=== PATIENT | male | born 1975 | race Caucasian/White ===

== ENCOUNTER 2020-04-13 13:39 | Outpatient (REF) | payer OTHER, SELFPAY | END 2020-04-13 13:40 | disposition home or self-care (01) | LOC: HO.LAB 13:39 | PROVIDERS: Visit Provider Internal Medicine | DX: Z20.828 Contact with and (suspected) exposure to other viral communicable diseases (principal) | CPT/HCPCS: C9803; U0003 ==

== ENCOUNTER 2020-07-12 16:02 | Outpatient (REF) | payer OTHER, SELFPAY | END 2020-07-12 16:03 | disposition home or self-care (01) | LOC: HO.LAB 16:02 | PROVIDERS: Visit Provider Internal Medicine | DX: Z20.822 Contact with and (suspected) exposure to COVID-19 (principal) | CPT/HCPCS: 36415; C9803; U0003; U0005 ==

== ENCOUNTER 2020-07-20 12:43 | Outpatient (REF) | payer OTHER, SELFPAY ==
[2020-07-21 10:12] LABS: SARS COV2 PCR INHOUSE NEGATIVE (Negative)
== END 2020-07-20 12:44 | disposition home or self-care (01) ==
LOC: HO.LAB 12:43
PROVIDERS: Visit Provider Internal Medicine
DX: Z20.822 Contact with and (suspected) exposure to COVID-19 (principal)
CPT/HCPCS: C9803; U0003

== ENCOUNTER 2020-07-24 07:31 | Outpatient (REF) | payer OTHER, SELFPAY ==
[2020-07-24 08:58] LABS: SARS COV2 PCR INHOUSE NEGATIVE (Negative)
== END 2020-07-24 07:32 | disposition home or self-care (01) ==
LOC: HO.LAB 07:31
PROVIDERS: Visit Provider Internal Medicine
DX: Z20.822 Contact with and (suspected) exposure to COVID-19 (principal)
CPT/HCPCS: C9803; U0003

== ENCOUNTER 2020-09-01 11:13 | Outpatient (REF) | payer MEDICAID, SELFPAY | END 2020-09-01 11:14 | disposition home or self-care (01) | LOC: HO.LAB 11:13 | PROVIDERS: Visit Provider Internal Medicine | DX: Z20.822 Contact with and (suspected) exposure to COVID-19 (principal) | CPT/HCPCS: C9803; U0003; U0005 ==

== ENCOUNTER 2021-04-18 08:49 | Outpatient (REF) | payer OTHER, SELFPAY | END 2021-04-18 08:50 | disposition home or self-care (01) | LOC: HO.HMGCLDS 08:49 | PROVIDERS: Visit Provider Internal Medicine | DX: Z20.822 Contact with and (suspected) exposure to COVID-19 (principal) | CPT/HCPCS: C9803; U0003; U0005 ==

== ENCOUNTER 2024-12-03 08:49 | Outpatient (REF) | payer OTHER, SELFPAY ==
--- OUTSIDE RECORDS SUMMARY | 2024-11-30 09:45 | XMS_ITS | Encounter Summary ---
Author Organization [facility] Address [address] 7[address] [place] [address] Care Team Providers Care Cigarette Filter Inspector Name Role Phone Felicia Rico MD Primary Care Provider [phone] Reason for Referral * Imaging (Routine) - Pending Review Specialty Diagnoses / Procedures [facility] To Contact Cardiology Diagnoses Cardiomyopathy, unspecified type (CMS/HCC) HFrEF (heart failure with reduced ejection fraction) (CMS/HCC) Procedures Transthoracic Echo (TTE) Complete Felicia Rico MD [address] [place] [address] Phone: tel: fax: Referral ID Status Reason Start Date Expiration Date Visits Requested Visits Authorized [id number] Pending Review Perform Procedure 12/03/2024 12/03/2025 1 1 * Consultation (Routine) - Pending Review Specialty Diagnoses / Procedures [facility] To Contact Cardiology Diagnoses Cardiomyopathy, unspecified type (CMS/HCC) HFrEF (heart failure with reduced ejection fraction) (CMS/HCC) Felicia Rico MD [address] [place] [address] Phone: tel: fax: Referral ID Status Reason Start Date Expiration Date Visits Requested Visits Authorized [id number] Pending Review Specialty Services Required 12/03/2024 12/03/2025 1 1 Reason for Visit * Reason Comments Establish Care Encounter Details Date Type Department Care Team (Late st Contact Info) Description 11/30/2024 9:45 AM EDT Office Visit [facility] MEDICINE [address] [place] [address] Felicia Rico MD [address] [facility] [place] [address] Primary hypertension (Primary Dx); Cardiomyopathy, unspecified type (CMS/HCC); Dietary counseling; Exercise counseling; Class 1 obesity with serious comorbidity and body mass index (BMI) of 30.0 to 30.9 in adult, unspecified obesity type; HFrEF (heart failure with reduced ejection fraction) (CMS/HCC); Sore throat Social History Tobacco Use Types Packs/Day Years Used Date Smoking Tobacco: Every Day Cigarettes Smokeless Tobacco: Never Alcohol Use Standard Drinks/Week Comments Never 0 (1 standard drink = 0.6 oz pur e alcohol) Depression Answer Date Recorded Patient Health Questionnaire-9 Score 0 11/30/2024 Patient Health Questionnaire-9 Score 0 11/30/2024 Last PHQ-9: Questionnaire Data Not on file 0 11/30/2024 Housing Stability Answer Date Recorded What is your housing situation today? I have mikle zuñiga 11/19/[address] you li ve. Do you have problems with any of the following? None of the above 11/19/2024 Food Insecurity Answer Date Recorded Within the past 12 months, y ou worried that your food would run out before you got money to buy more: Never True 11/19/2024 Within the past 12 months,th e food you bought just didn't last and you didn't have enough money to get more: Never True 04/2024 Transportation Answer Date Recorded In the past 12 months, has l ack of transportation kept you from medical appts, meetings, work or from getting things needed for daily living? No 11/19/2024 Utilities Answer Date Recorded In the past 12 months, has t he electric, gas, oil or water company threatened to shut off services in your home? No 11/19/2024 Depression Answer Date Recorded Patient Health Questionnaire-2 Score 0 11/30/2024 Internet Access Answer Date Recorded Internet Access Q1 Yes 11/19/2024 Internet Access Q2 Not on file 11/19/2024 Sex and Gender Information Value Date Recorded Sex Assigned at Male 11/29/2024 9:22 AM EDT Legal Sex Male 3:46 PM EDT Gender Identity Male 11/29/2024 9:22 AM EDT Sexual Orientation Straight 11/29/2024 9: 23 AM EDT documented as of this encounter Last Filed Vital Signs Vital Sign Reading Time Taken Comments Blood Pressure 150/100 11/30/2024 9:47 AM EDT Pulse 90 11/30/2024 9:47 AM EDT Temperature 37 C (98.6 F) 11/30/2024 9:47 AM EDT Respiratory Rate 20 11/30/2024 9:47 AM EDT Oxygen Saturation - - Inhaled Oxygen Concentration - - Weight 96.6 kg (213 lb) 11/30/2024 9:47 AM EDT Height 175.3 cm (5' 9 ) 11/30/2024 9:47 AM EDT Body Mass Index 31.45 11/30/2024 9:47 AM EDT documented in this encounter Functional Status * Over the past 2 weeks, how often have you been bothered by any of the following problems? Question Answer Date of Assessment Author Patient Health Questionnaire-2 Score 0 11/30/2024 9:54 AM EDT Zoila Savage MA * Little interest or pleasure in doing things Answer Date of Assessment Author Not at all 11/30/2024 9:54 AM EDT Zoila Hansen MA * Feeling down, depressed, or hopeless Answer Date of Assessment Author Not at all 11/30/2024 9:54 AM EDT Zoila Hansen MA * Trouble falling or staying asleep, or sleeping too much Answer Date of Assessment Author Not at all 11/30/2024 9:54 AM EDT Zoila Hansen MA * Feeling tired or having little energy Answer Date of Assessment Author Not at all 11/30/2024 9:54 AM EDT Zoila Hansen MA * Poor appetite or overeating Answer Date of Assessment Author Not at all 11/30/2024 9:54 AM EDT Zoila Hansen MA * Feeling bad about yourself - or that you are a failure or have let yourself or your family down Answer Date of Assessment Author Not at all 11/30/2024 9:54 AM EDT Zoila Hansen MA * Trouble concentrating on things, such as reading the newspaper or watching television Answer Date of Assessment Author Not at all 11/30/2024 9:54 AM Zoila Veronica MA * Moving or speaking so slowly that other people could have noticed? Or the opposite - being so fidgety or restless that you have been moving around a lot more than usual. Answer Date of Assessment Author Not at all 11/30/2024 9:54 AM EDT Zoila Hansen MA * Thoughts that you would be better off or hurting yourself in some way Answer Date of Assessment Author Not at all 11/30/2024 9:54 AM Zoila Veronica MA * Patient Health Questionnaire-9 Score Answer Date of Assessment Author 0 11/30/2024 9:54 AM KVNGT Zoila Hansen MA * Over the last 2 weeks, how often have you been bothered by any of the following problems? Question Answer Date of Assessment Author Feeling nervous, anxious, or on edge 0 11/30/2024 9:54 AM EDT Zoila Myers MA Not being able to stop or control worrying 0 11/30/2024 9:54 AM EDT Zoila Myers MA Worrying too much about different things 0 11/30/2024 9:54 AM EDT Zoila Myers MA Trouble relaxing 0 11/30/2024 9:54 AM EDT Zoila Garza MA Being so restless that it is hard to sit still 0 11/30/2024 9:54 AM KVNGT Zoila Myers MA Becoming easily annoyed or irritable 0 11/30/2024 9:54 AM Zoila Ornelas MA Feeling afraid as if something awful might happen 0 11/30/2024 9:54 AM EDT Zoila Smith MA MEÑO-7 Total Score 0 11/30/2024 9:54 AM Zoila Ornelas MA documented as of this encounter Progress Notes * Felicia Rico MD - 11/30/2024 9:45 AM EDT SUBJECTIVE: Mayank Saha is a 49 y.o. year old male who presents for new/transfer patient. Denies recent illness, ER visit, or hospitalization. He was previously being seen in [place], but his is a patient here so he decided to consolidate family care here. 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 Poor sleep Quit smoking and then went back to smoking 2 months ago Patient Active Problem List Diagnosis Date Noted Cardiomyopathy, unspecified type ([facility]) 11/30/2024 Encounter for screening colonoscopy 11/30/2024 Angina at rest ([facility]) 11/30/2024 HFrEF (heart failure with reduced ejection fraction) ([facility]) 02/13/2024 Class 1 obesity due to excess calories with body mass index (BMI) of 30.0 to 30.9 in adult 02/13/2024 Left bundle branch block 02/13/2024 Tobacco dependence due to cigarettes 02/13/2024 Hyperlipidemia 01/31/2024 Primary hypertension 01/31/2024 Surgical History[1] Social History Social History Narrative Not on file Review of Systems Constitutional: Negative. HENT: Negative for sore throat. Respiratory: Negative. Cardiovascular: Negative. Gastrointestinal: Negative. Musculoskeletal: Positive for arthralgias and back pain. Psychiatric/Behavioral: Negative. OBJECTIVE: Vitals: 11/30/24 0947 BP: (!) 150/100 BP Location: Left arm Patient Position: Sitting BP Cuff Size: Large adult Pulse: 90 Resp: 20 Temp: 98.6 ??F (37 ??C) TempSrc: Oral Weight: 213 lb (96.6 kg) Height: 5' 9 (1.753 m) Physical Exam Vitals reviewed. Constitutional: Appearance: Normal appearance. He is well-developed. HENT: Head: Normocephalic and atraumatic. Right Ear: Tympanic membrane normal. Left Ear: Tympanic membrane normal. Nose: Nose normal. Mouth/Throat: Mouth: Mucous membranes are moist. Pharynx: Oropharynx is clear. Eyes: Pupils: Pupils are equal, round, and reactive to light. Cardiovascular: Rate and Rhythm: Normal rate and regular rhythm. Heart sounds: Normal heart sounds. Pulmonary: Effort: Pulmonary effort is normal. Breath sounds: Normal breath sounds. Abdominal: General: Bowel sounds are normal. Palpations: Abdomen is soft. Musculoskeletal: General: Normal range of motion. Cervical back: Normal range of motion and neck supple. Skin: Findings: No lesion or rash. Neurological: General: No focal deficit present. Mental Status: He is alert. Psychiatric: Mood and Affect: Mood normal. ASSESSMENT/PLAN Problem List Items Addressed This Visit Cardiomyopathy, unspecified type (CMS/HCC) Relevant Medications sacubitril-valsartan (Entresto) 97-103 MG tablet amLODIPine (Norvasc) 5 MG tablet aspirin 81 MG EC tablet atorvastatin (Lipitor) 80 MG tablet carvedilol (Coreg) 12.5 MG tablet Other Relevant Orders Referral to Cardiology Transthoracic Echo (TTE) Complete HFrEF (heart failure with reduced ejection fraction) (CMS/HCC) (Chronic) Relevant Medications sacubitril-valsartan (Entresto) 97-103 MG tablet amLODIPine (Norvasc) 5 MG tablet aspirin 81 MG EC tablet atorvastatin (Lipitor) 80 MG tablet carvedilol (Coreg) 12.5 MG tablet Other Relevant Orders Referral to Cardiology Transthoracic Echo (TTE) Complete Primary hypertension - Primary Current Assessment & Plan Maintenance: increase Amlodipine to 5mg daily BMP: Lipid Panel: ASCVD Risk: Calculate pending updated labs EKG: Obtain baseline at f/u - Aerobic exercise to reduce BP. Initial goal of 30 min walk 3-5x/week. Increase as tolerated. - low-sodium diet (goal: <2g/day) and heart healthy diet such as DASH to reduce BP and prevent ASCVD. - Home BP monitoring 1-2 x day with goal of <140/90. - Seek immediate medical attention for chest pain, palpitations, SOB, syncope, or sudden changes inmental status. - Do not change or discontinue current prescriptions without first consulting health care provider Relevant Medications sacubitril-valsartan (Entresto) 97-103 MG tablet tamsulosin (Flomax) 0.4 MG 24 hr capsule amLODIPine (Norvasc) 5 MG tablet aspirin 81 MG EC tablet atorvastatin (Lipitor) 80 MG tablet carvedilol (Coreg) 12.5 MG tablet Other Relevant Orders Lipid Panel, Standard Comprehensive Metabolic Panel Hemoglobin A1c Other Visit Diagnoses Dietary counseling Relevant Medications atorvastatin (Lipitor) 80 MG tablet Exercise counseling Relevant Medications atorvastatin (Lipitor) 80 MG tablet Class 1 obesity with serious comorbidity and body mass index (BMI) of 30.0 to 30.9 in adult, unspecified obesity type Relevant Medications atorvastatin (Lipitor) 80 MG tablet Sore throat Relevant Medications cetirizine (ZyrTEC) 10 MG tablet fluticasone (Flonase) 50 MCG/ACT nasal spray Follow Up: 4 months or sooner prn Allergies[2] Current Medications[3] Dutch Translation: Provided by [facility] staff member ALLIE Martin [1] History reviewed. No pertinent surgical history. [2] No Known Allergies [3] Current Outpatient Medications: sacubitril-valsartan (Entresto) 97-103 MG tablet, Take 1 tablet by mouth 2 times daily., Disp: , Rfl: tamsulosin (Flomax) 0.4 MG 24 hr capsule, TOME 1 C PSULA POR V A ORAL TODOS LOS D FOR 14 DAYS, Disp: , Rfl: amLODIPine (Norvasc) 5 MG tablet, Take 1 tablet (5 mg) by mouth Once per day., Disp: 90 tablet, Rfl: 3 aspirin 81 MG EC tablet, Take 1 tablet (81 mg) by mouth Once per day., Disp: 90 tablet, Rfl: 3 atorvastatin (Lipitor) 80 MG tablet, Take 1 tablet (80 mg) by mouth Once per day., Disp: 90 tablet,Rfl: 3 carvedilol (Coreg) 12.5 MG tablet, Take 1 tablet (12.5 mg) by mouth with breakfast and with eveningmeal., Disp: 180 tablet, Rfl: 3 cetirizine (ZyrTEC) 10 MG tablet, Take 1 tablet (10 mg) by mouth Once per day., Disp: 90 tablet, Rfl: 3 fluticasone (Flonase) 50 MCG/ACT nasal spray, Administer 1-2 sprays into each nostril Once per day.Shake gently. Before first use, prime pump. After use, clean tip and replace cap., Disp: 16 g, Rfl:3 documented in this encounter Miscellaneous Notes * Assessment & Plan Note - Felicia Rico MD - 12/03/2024 8:30 AM EDTAssociated Problem(s): Primary hypertension Maintenance: increase Amlodipine to 5mg daily BMP: Lipid Panel: ASCVD Risk: Calculate pending updated labs EKG: Obtain baseline at f/u - Aerobic exercise to reduce BP. Initial goal of 30 min walk 3-5x/week. Increase as tolerated. - low-sodium diet (goal: <2g/day) and heart healthy diet such as DASH to reduce BP and prevent ASCVD. - Home BP monitoring 1-2 x day with goal of <140/90. - Seek immediate medical attention for chest pain, palpitations, SOB, syncope, or sudden changes inmental status. - Do not change or discontinue current prescriptions without first consulting health care provider documented in this encounter Plan of Treatment Scheduled Orders Name Type Priority Associated Diagnoses Orde r Schedule Lipid Panel, Standard Lab Routine Primary hypertension Expected: 11/30/2024 (Approximate), Expires: 11/30/2025 Comprehensive Metabolic Panel Lab Routine Primary hypertension Expected: 11/30/2024 (Approximate), Expires: 11/30/2025 Hemoglobin A1c Lab Routine Primary hypertension Expected: 11/30/2024 (Approximate), Expires: 11/30/2025 Transthoracic Echo (TTE) Complete Echocardiography Routine Cardiomyopathy, unspecified type (CMS/HCC) HFrEF (heart failure with reduced ejection fraction) (CMS/HCC) Expected: 12/03/2024 (Approximate), Expires: 12/03/2026 Scheduled Referrals Name Type Priority Associated Diagnoses Orde r Schedule Referral to Cardiology Outpatient Referral Routine Cardiomyopathy, unspecified type (CMS/HCC) HFrEF (heart failure with reduced ejection fraction) (CMS/HCC) Expected: 12/03/2024 (Approximate), Expires: 12/03/2025 documented as of this encounter Visit Diagnoses Diagnosis Primary hypertension- Primary Unspecified essential hypertension Cardiomyopathy, unspecified type (CMS/HCC) Dietary counseling Dietary surveillance and counseling Exercise counseling Class 1 obesity with serious comorbidity and body mass index (BMI) of 30.0 to 30.9 in adult, unspecified obesity type HFrEF (heart failure with reduced ejection fraction) ([facility]) Sore throat Acute pharyngitis documented in this encounter Additional Health Concerns Assessment Noted Time PHQ-9 Depression Total Score: 0 12/01/19 25 9:54 AM EDT documented as of this encounter Care Teams Cigarette Filter Inspector Relationship Specialty Start Date End Date Felicia Rico MD [address] [place] [id number] PCP - General Family Medicine 11/30/24 documented as of this encounter
--- OUTSIDE RECORDS SUMMARY | 2024-12-03 09:07 | XMS_ITS | Clinical Summary ---
Author Organization [facility] ity Address [address] [place] [address] Care Team Providers Care Wood Getter Name Role Phone Unavailable Primary Care Provider Unavailabl e Social History Tobacco Use Types Packs/Day Years Used Date Smoking Tobacco: Never Assessed Sex and Gender Information Value Date Recorded Sex Assigned at Not on file Legal Sex Male 11:38 AM EST Gender Identity Not on file Sexual Orientation Not on file Plan of Treatment Health Maintenance Due Date Last Done Comments DTaP,Tdap,and Td Vaccines (1 - Tdap) 1992 Hepatitis B Vaccines (1 of 3 - 19+ 3-dose series) 1992 Pneumococcal Vaccine: 50+ Ye ars (1 of 1 - PCV) 09/05/2023 Zoster Vaccines (1 of 2) 09/05/2023 COVID-19 Vaccine (1 - 2023-2 5 season) 2023 Depression Screening 04/21/2024 Influenza Vaccine (#1) 2024 HIB Vaccines Aged Out No longer eligi ble based on patient's age to complete this topic HPV Vaccines Aged Out No longer eligi ble based on patient's age to complete this topic Hepatitis A Vaccines Aged Out No long er eligible based on patient's age to complete this topic IPV Vaccines Aged Out No longer eligi ble based on patient's age to complete this topic MMR Vaccines Aged Out No longer eligi ble based on patient's age to complete this topic Meningococcal ACWY Vaccine Aged Out N o longer eligible based on patient's age to complete this topic Meningococcal B Vaccine Aged Out No l onger eligible based on patient's age to complete this topic RSV Immunization Patients Un steffany 20 months Aged Out No longer eligible b ased on patient's age to complete this topic Varicella Vaccines Aged Out No longer eligible based on patient's age to complete this topic
--- OUTSIDE RECORDS SUMMARY | 2024-12-03 09:07 | XMS_ITS | Clinical Summary ---
Author Organization [facility] Address [address] [place] [address] Care Team Providers Care Electrical Products Sales Engineer Name Role Phone Maria Ines Mcnair VARGAS Primary Care Provider [phone] Source Comments PLEASE NOTE, if this patient is a minor, it may be UNLAWFUL to discuss sensitive information that is contained in these records (such as FAMILY PLANNING, MENTAL HEALTH or SUBSTANCE ABUSE) with the minor patient's parent or other person without the patient's specific authorization.[facility] Allergies No known active allergies Medications benzocaine-menthoL (CHLORASEPTIC) 6-10 mg lozengeIndications :Sore throat Take 1 Lozenge by mouth every 2 (two) hours as needed for sore throat 18 Lozenge 1 01/31/20 Active naproxen (NAPROSYN) 500 mg tabletIndications: Sciatica, left side Take 1 Tablet by mouth 2 (two) times daily with a meal 90 Tablet 1 02/13/20 Active Additional Information Patient not taking.Reported on 07/12/2024 gabapentin (NEURONTIN) 300 mg capsule Take 1 Capsule by mouth 3 (three) times daily 90 Capsule 1 02/13/20 Active sacubitriL-valsart an (ENTRESTO) 97-103 mg tab Take 1 Tablet by mouth 2 (two) times a day 02/13/20 Active diclofenac sodium (VOLTAREN) 1 % gel Apply 2 g topically 4 (four) times daily 02/13/20 Active nitroglycerin (NITROSTAT) 0.[address] 1 Tablet under the tongue every 5 (five) minutes as needed for chest pain 02/13/20 Active amLODIPine (NORVASC) 2.5 mg tabletIndications: Primary hypertension Take 1 Tablet by mouth once daily 90 Tablet 1 07/13/19 Active atorvastatin (LIPITOR) 80 mg tabletIndications: Hyperlipidemia, unspecified hyperlipidemia type Take 1 Tablet by mouth nightly at bedtime 90 Tablet 1 07/13/19 25 Active carvediloL (COREG) 12.5 mg tabletIndications: Primary hypertension,HFrEF (heart failure with reduced ejection fraction) ([facility]) Take 1 Tablet by mouth 2 (two) times daily with a meal 180 Tablet 1 07/13/[address] Active aspirin [address] tabletIndications: Hyperlipidemia, unspecified hyperlipidemia type,HFrEF (heart failure with reduced ejection fraction) ([facility]) TOME 1 TABLETA POR VIA ORAL TODOS LOS ELIZONDO 90 Tablet 10/18/19 Active Active Problems Problem Noted Date Diagnosed Date HFrEF (heart failure with re duced ejection fraction) ([facility]) 02/13/2024 Left bundle branch block 02/13/2024 Overview (02/13/2024): EKG 02/26/19: Normal sinus rhythm Possible Left atrial enlargement Left axis deviation & Left bundle branch block Class 1 obesity due to exces s calories with body mass index (BMI) of 30.0 to 30.9 in adult 02/13/2024 Tobacco dependence due to cigarettes 02/13/2024 Cardiomyopathy ([facility]) 02/13/2024 Primary hypertension 01/31/2024 Hyperlipidemia 01/31/2024 Family History Medical History Relation Name Comments Heart Disease Father Relation Name Status Comments Daughter 3 girls Alive Father Mother Alive Son 4 boys Alive Social History Tobacco Use Types Packs/Day Years Used Date Smoking Tobacco: Every Day Cigarettes Passive Smoke Exposure: Past Tobacco Cessation:Ready to Q uit: Not Asked; Counseling Given: Not Answered Comments:2-3 cig a day Alcohol Use Standard Drinks/Week Comments Not Currently 0 (1 standard drink = 0.6 oz pur e alcohol) Social Connections Answer Date Recorded Connectedness 0 01/30/2024 Financial Resource Strain Answer Date R ecorded Financial Resource Strain 0 2023 Stress Answer Date Recorded Stress 0 01/30/2024 Physical Activity Answer Date Recorded Physical Activity 0 01/30/2024 Food Insecurity Answer Date Recorded Food 0 01/30/2024 Transportation Needs Answer Date Record ed Transportation 0 01/30/2024 Housing Stability Answer Date Recorded Housing 0 01/30/2024 Safety and Environment Answer Date Kiran rded Safety 0 01/30/2024 Utilities Answer Date Recorded Utilities 0 01/30/2024 Employment Answer Date Recorded Stress 0 01/30/2024 Sex and Gender Information Value Date Recorded Sex Assigned at Male 01/31/2024 6:33 AM PDT Legal Sex Male 6:12 AM PST Gender Identity Male 01/31/2024 6:59 AM PDT Sexual Orientation Straight 01/31/2024 6: 33 AM PDT Last Filed Vital Signs Vital Sign Reading Time Taken Comments Blood Pressure 142/82 02/13/2024 3:53 PM EDT Pulse 67 02/13/2024 3:53 PM EDT Temperature 36.6 C (97.8 F) 02/13/2024 3:53 PM EDT Respiratory Rate 16 02/13/2024 3:53 PM EDT Oxygen Saturation 99% 02/13/2024 3:53 PM EDT Inhaled Oxygen Concentration - - Weight 94.7 kg (208 lb 12.8 oz) 02/13/2024 3:53 PM EDT Height 175.3 cm (5' 9 ) 02/13/2024 3:53 PM EDT Body Mass Index 30.83 02/13/2024 3:53 PM EDT Plan of Treatment Health Maintenance Due Date Last Done Comments Anxiety Screening 1973 Diabetes Screening 1973 Hepatitis C Screening 1973 Lipid Screening 1973 HIV Screening 1988 Imm-Hepatitis B (1 of 3 - 19+ 3-dose series) 3 Imm-DTaP/Tdap/Td (1 - Tdap) 08/27/2015 08/26/2015 CT Colonography 2018 Colonoscopy 2018 Colorectal Cancer Screening 2018 FIT/gFOBT 2018 Fecal DNA 2018 Flexible Sigmoidoscopy 2018 Imm-Pneumococcal 50+ (2 of 2 - PCV) 03/09/202003/09 Imm-Zoster, Recombinant (1 of 2) 09/05/2023 [id number] (1 - ) 12/21/2023 Alcohol and Drug Screen 04/21/2024 02/13/2024 Depression Annual Screen 04/21/2024 02/13/2024 Imm-Influenza (#1) 2024 03/09/2019 Annual Wellness (Adult): Indicated (All Coverage) 01/2002/13/2024 Tobacco Cessation Counseling (#1) 02/12/2025 024 Insurance [facility] Care Teams Electrical Products Sales Engineer Relationship Specialty Start Date End Date Maria Ines Mcnair NP [address] [place] [address] PCP - General Family Medicine, CENTER REP 01/30/24
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
[2024-12-03 11:28] LABS: Hemoglobin A1C 137.6348 umol/L; Total Hemoglobin (HGBA1C) 4102.0919 umol/L
[2024-12-03 11:41] LABS: Alanine Aminotransferase 50 U/L (0-40); Albumin Level 4.6 g/dL (3.5-5.0); Alkaline Phosphatase 75 U/L (39-117); Anion Gap 8 (12-20); Aspartate Amino Transferase 36 U/L (5-37); Blood Urea Nitrogen 24 mg/dL (9-16); Calcium 9.2 mg/dL (8.4-10.2); Carbon Dioxide 28 mmol/L (22-29); Chloride 106 mmol/L (96-108); Cholesterol 163 mg/dL (<200); Estimated Glomerular Filt Rate > 60; HDL Cholesterol 48 mg/dL (>40); Potassium 4.4 mmol/L (3.3-5.1); Sodium 138 mmol/L (135-145); Total Protein 7.0 g/dL (6.5-8.0); Triglycerides 64 mg/dL (<150)
== END 2024-12-03 08:50 | disposition home or self-care (01) ==
LOC: HO.HHCL 08:49
PROVIDERS: PCP General Practice; Visit Provider General Practice
DX: I10 Essential (primary) hypertension (principal)
CPT/HCPCS: 36415; 80053; 80061; 83036

== ENCOUNTER → 2025-02-03 11:11 | Outpatient (REF) | payer OTHER, SELFPAY ==
--- NOTE | 2025-02-03 11:14 | CA_ITS ---
Transthoracic Echocardiogram Patient (Last, First, Middle): Mayank Olson, Gender: M Date of : 1975 Age: 49 Procedure Date: 02/03/2025 Procedure Type: Transthoracic Echocardiogram Location: OP Height: 175.26 cm Weight: 92.99 kg BSA: 2.09 m2 Heart Rate: bpm BP: 156 / 92 mmHg Granite Cutter: MAHESH Referring MD: Felicia Rico MD Clipper Operator: Herb Mohan MD Symptoms: CARDIOMYOPATHY Study Quality: Adequate ECG Rhythm: Sinus Conclusions: - 1. Mildly dilated left ventricle with mildly reduced LV EF of 45-50% with impaired relaxation filling pattern and elevated filling pressures 2. Mildly dilated left atrium 3. Mild mitral regurgitation 4. Normal calculated RV systolic pressure 5. Mildly dilated ascending aorta at 3.8 cm 6. No gross pericardial effusion Findings Left Ventricle Mildly increased left ventricular cavity size. There is normal left ventricular wall thickness. The left ventricular systolic function is mildly decreased. The visually estimated ejection fraction is between 45-50%. There is paradoxical septal motion consistent with a left bundle branch block. Spectral Doppler is indicative of an impaired relaxation filling pattern. Elevated filling pressures.Peak GLS is -14.3%, moderately reduced. Right Ventricle Normal right ventricular cavity size and systolic function. Atria The left atrium is mildly dilated. There is no evidence of interatrial shunt. The right atrium is normal in size. Aortic Valve Normal aortic valve structure and function. There is no aortic valve stenosis. There is no aortic valve regurgitation. Mitral Valve Normal mitral valve structure and function. There is mild mitral valve regurgitation. There is no mitral valve stenosis. Pulmonic Valve The pulmonic valve is likely normal. Tricuspid Valve Normal tricuspid valve structure. There is trace tricuspid valve regurgitation. The right ventricular systolic pressure is normal. The right ventricular systolic pressure is 15 mmHg. Normal right atrial pressure. There is no evidence of pulmonary hypertension. Great Vessels The pulmonary artery was not well visualized. There is mild dilatation of the ascending aorta measuring 3.80 cm. Venous The inferior vena cava is normal in size and collapses greater than 50% with inspiration. Pericardium/Pleural There is no evidence of pericardial effusion. Prior Study Comparison No prior study available for comparison. Measurements 2D Linear Measurements IVSd: 1.05 0.6-0.9/0.6-1.0 cm LVIDd: 5.87 3.9-5.3/4.2-5.9 cm LVIDd Index: 2.81 2.4-3.2/2.2-3.1 cm/m2 LVIDs: 4.73 2.0-3.6 cm LVPWd: 1.05 0.7-1.1 cm LA Diam: 4.10 2.7-3.8/3.0-4.0 cm LAIDs Index: 1.96 1.5-2.3 cm/m2 LV Mass: 316.16 67-162/88-224 g LV Mass Index: 151.27 43-95/49-115 g/m2 LVOT Diam: 2.20 3.0+(-)1.3 cm 2D Systolic Function EF 4C: 47.70 >55% EF 2C: 52.60 >55% EF BiP: 50.00 >55% Mitral Valve MV Pk E: 0.76 MV PK A: 1.05 MV Decel Time: 314.00 E/A: 0.70 E'Lateral: 4.79 E'Medial: 4.46 E/E' Med: 17.00 E/E' Lat: 15.80 PHT: 92.00 MVA PHT: 2.39 Decel Blaine: 2.42 Aortic Valve AoV Pk Hakeem: 1.62 AoV Mn Hakeem: 1.13 AoV VTI: 0.33 AoV Pk Grad: 10.00 Aov Mn Grad: 6.00 RENATA Cont.VTI: 2.62 LVOT LVOT Pk Hakeem: 1.16 LVOT Mn Hakeem: 0.76 LVOT VTI: 0.23 LVOT Pk Grad: 5.00 LVOT Mn Grad: 3.00 LVOT Diam: 2.20 LVOT Area: 3.80 Diastolic Function MV Pk E: 0.76 MV Pk A: 1.05 E/A: 0.70 E'Medial: 4.46 E/E' Med: 17.00 E' Laterial: 4.79 E/E' Lat: 15.80 Right Ventricle TAPSE (mm): 24.80 TVS' Hakeem: 10.30 Tricuspid Valve TR Pk Hakeem: 1.74 TR Pk Grad: 12.00 RA Press: 3.00 RVSP: 15.00 Great Vessels Aorta Sinus of Valsalva: 3.91 2.0-3.[address] Ridge: 2.69 1.7-3.4 cm Ao Asc: 3.80 2.1-3.4 cm Ao Arch: 3.40 Pulmonary Veins Pulm Vein S/D 1.40 Updated in Other Vendor System with Status of Final Herb Mohan MD electronically signed on 02/03/2025 12:39:32 PM with status of Final
--- OUTSIDE RECORDS SUMMARY | 2025-02-03 14:19 | XMS_ITS | Clinical Summary ---
Author Organization [employer] Address [address] [place] [address] Care Team Providers Care Tier Lift Operator Name Role Phone Felicia Rico MD Primary Care Provider [phone] Allergies No known active allergies Medications sacubitril-valsar kessler (Entresto) 97-103 MG tabletIndications :HFrEF (heart failure with reduced ejection fraction) (HCC) Take 1 tablet by mouth 2 times daily. 4 Active tamsulosin (Flomax) 0.4 MG 24 hr capsule TOME 1 C PSULA POR V A ORAL TODOS LOS D FOR 14 DAYS 4 Active amLODIPine (Norvasc) 5 MG tabletIndications :Primary hypertension Take 1 tablet (5 mg) by mouth Once per day. 90 tablet 3 5 12/01/19 26 Active aspirin 81 MG EC tabletIndications :Primary hypertension Take 1 tablet (81 mg) by mouth Once per day. 90 tablet 3 5 Active atorvastatin (Lipitor) 80 MG tabletIndications :Primary hypertension Take 1 tablet (80 mg) by mouth Once per day. 90 tablet 3 5 Active carvedilol (Coreg) 12.5 MG tabletIndications :HFrEF (heart failure with reduced ejection fraction) (HCC) Take 1 tablet (12.5 mg) by mouth with breakfast and with evening meal. 180 tablet 3 5 Active cetirizine (ZyrTEC) 10 MG tabletIndications :Sore throat Take 1 tablet (10 mg) by mouth Once per day. 90 tablet 3 5 12/01/19 26 Active fluticasone (Flonase) 50 MCG/ACT nasal sprayIndications: Sore throat Administer 1-2 sprays into each nostril Once per day. Shake gently. Before first use, prime pump. After use, clean tip and replace cap. 16 g 3 5 12/01/19 26 Active Active Problems Problem Noted Date Diagnosed Date Cardiomyopathy, unspecified type (CMS/HCC) 11/30 Encounter for screening colonoscopy 11/30/2024 Angina at rest 11/30/2024 HFrEF (heart failure with reduced ejection fract ion) 02/13/2024 Class 1 obesity due to exces s calories with body mass index (BMI) of 30.0 to 30.9 in adult 02/13/2024 Left bundle branch block 02/13/2024 Overview (11/30/2024): EKG 02/26/19: Normal sinus rhythm Possible Left atrial enlargement Left axis deviation & Left bundle branch block Tobacco dependence due to cigarettes 02/13/2024 Hyperlipidemia 01/31/2024 Primary hypertension 01/31/2024 Assessment & Plan (12/03/2024 8:30 AM EDT): Maintenance: increase Amlodipine to 5mg daily BMP: [...] pain, palpitations, SOB, syncope, or sudden changes in mental status. - Do not change or discontinue current prescriptions without first consulting health care provider Encounters Date Type Department Care Team Description 11/30/2024 9:45 AM EDT Office Visit [facility] [address] [place] [address] Felicia Rico MD Primary hypertension (Primary Dx); Cardiomyopathy, unspecified type (CMS/HCC); Dietary counseling; Exercise counseling; Class 1 obesity with serious comorbidity and body mass index (BMI) of 30.0 to 30.9 in adult, unspecified obesity type; HFrEF (heart failure with reduced ejection fraction) (CMS/HCC); Sore throat 11/30/2024 Travel 11/19/2024 Patient Outreach [facility] [address] [place] [address] Felicia Rico MD Pre-visit Planning (SDOH screening negative and tobacco screening negative) from Last 3 Months Immunizations Immunization Administration Dates Next Due Influenza, seasonal, injectable, preservative fr ee 03/09/2019 Pneumococcal Polysaccharide PPSV23 03/09/2019 Td (adult), 5 Lf tetanus tox oid, preservative free, adsorbed 08/26/2015 Social History Tobacco Use Types Packs/Day Years [...] is your housing situation today? I have mikel zuñiga 11/19/[address] you [...] Orientation Straight 11/29/2024 9: 23 AM EDT Last Filed Vital Signs Vital Sign Reading [...] Mass Index 31.45 11/30/2024 9:47 AM EDT Plan of Treatment Health Maintenance Due Date Last Done Comments CT Colonography 1975 Colonoscopy 1975 Colorectal Cancer Screening 1975 FIT DNA/Cologuard 1975 FIT 1975 FOBT 1975 HIV Screening 1975 Sigmoidoscopy 1975 Alcohol/Substance Use Screening 1985 Hepatitis C Screening 09/05/1991 Hepatitis B Vaccines (1 of 3 - 19+ 3-dose series) 1992 DTaP/Tdap/Td Vaccines (1 - Tdap) 08/27/2015 08/26/2015 Pneumococcal Vaccine: 50+ Years (2 of 2 - PCV) 03/09/2020 03/09/2019 Zoster Vaccines (1 of 2) 09/05/2023 COVID-19 Vaccine (1 - 2023-2 5 season) 2024 Influenza Vaccine (#1) 2024 03/09/2019 SDOH Screening 11/19/2025 11/19/2024 Depression Screening 11/30/2025 11/30/2024, 11/30/2024 Disability Screening 11/30/2025 11/30/2024 Tobacco Screening 11/30/2025 11/30/2024 Family Planning (PISQ) 12/03/2025 12/03/2024 Lipid Panel 12/03/2029 12/03/2024 RSV Patients and Patients Aged 60 years or older (1 - 1-dose 75+ series) 2048 HIB Vaccines Aged Out No longer eligi [...] patient's age to complete this topic Meningococcal Vaccine Aged Out No gallito rachell eligible based on patient's age to complete this topic RSV under 20 months Aged Out No longe r eligible based on patient's age to complete this topic Rotavirus Vaccines Aged Out No longer eligible based on patient's age to complete this topic Procedures Procedure Name Priority Date/Time Associated Diagnosis Comments HEMOGLOBIN A1C Routine 12/03/2024 8:52 AM EDT Primary hypertension COMPREHENSIVE METABOLIC PANEL Routine 12/03/2024 8:52 AM EDT Primary hypertension LIPID PANEL, STANDARD Routine 12/03/2024 8:52 AM EDT Primary hypertension from Last 3 Months Results * Hemoglobin A1c (12/03/2024 8:52 AM EDT) Hemoglobin A1c 5.2 <6.0 % [facility] Comment:Hemoglobin A1C Refer ence Range Adults: 4.8 - 6.0 % Non diabetic: < 6.0 % Goal: < 7.0 %Additional Action Suggested: > 8.0 %Note: Hemoglobin A1c results are invalid for patients with abnormal amounts of HbF. Blood transfusions may impact the HbA1c concentration in the patient sample. Estimated Average Glucose 103 mg/dL [facility] Comment:eAG = Estimated ave rage glucose which is %A1C expressed asaverage glucose, using the formula of the [id number]-[id number] Glucose study (ADAG), Diabetes Care, Vol.31,#8,Nov. 2007 Blood Venous blood specimen / Unknown 12/03/2024 8:52 AM EDT 12/03/2024 11:10 AM EDT us Felicia Rico MD LAB BLOOD ORDERABLES Final Res ult Performing Organization Address City/State/[facility] Co de Phone Number [facility] [address] [place] [address] [phone] * (ABNORMAL) Lipid Panel, Standard (12/03/2024 8:52 AM EDT) Triglycerides 64 <150 mg/dL [facility] Comment:Desirable Triglyceri de: less than 150 mg/dLBorderline High Triglyceride 150-199 mg/dLHigh Triglyceride: 200-499 mg/dLVery High Triglyceride: greater than or equal to 5OO mg/dL Cholesterol 163 <200 mg/dL [facility] Comment:Desirable Cholestero l: less than 200 mg/dLBorderline High Cholesterol: 200-239 mg/dLHigh Cholesterol: greater than 239 mg/dL LDL Cholesterol Calculated 103(H) <100 mg/dL [facility] Comment:Desirable LDL: less than 100 mg/dLNear Optimal/Above Optimal LDL: 110- 129 mg/dLBorderline High LDL: 130-159 mg/dLHigh LDL: 160-189 mg/dLVery High LDL: greater than or equal to 190 mg/dL HDL Cholesterol 48 >40 mg/dL [facility] Comment:Desirable HDL: great er than 40 mg/dL Note: This HDL assay may give artificially low results in patients with liver disease. Blood Venous blood specimen / Unknown 12/03/2024 8:52 AM EDT 12/03/2024 11:10 AM EDT us Felicia Rico MD LAB BLOOD ORDERABLES Final Res ult Performing Organization Address [facility]/ZIP Co de Phone Number [facility] [address] [place] [address] [phone] * (ABNORMAL) Comprehensive Metabolic Panel (12/03/2024 8:52 AM EDT) Sodium 138 135 - 145 mmol/L [facility] Potassium 4.4 3.3 - 5.1 mmol/L [facility] Chloride 106 96 - 108 mmol/L [facility] Carbon Dioxide 28 22 - 29 mmol/L [facility] Anion Gap 8(L) 12 - 20 [facility] Urea Nitrogen (BUN) 24(H) 9 - 16 mg/dL [facility] Creatinine, Serum 0.99 0.5 - 1.4 mg/dL [facility] Estimated Glomerular Filt Rate >60 [facility] Comment:Chronic Kidney Disea se: Estimated GFR < 60 mL/min/1.06s2Wdhszl Kidney Disease: Estimated GFR < 15 mL/min/1.73m2 Glucose 90 60 - 115 mg/dL [facility] Calcium 9.2 8.4 - 10.2 mg/dL [facility] Bilirubin, Total 0.4 0.0 - 1.0 mg/dL [facility] Aspartate Amino Transferase 36 5 - 37 U/L [facility] Alanine Aminotransferase 50(H) 0 - 40 U/L [facility] Total Protein 7.0 6.5 - 8.0 g/dL [facility] Albumin Level 4.6 3.5 - 5.0 g/dL [facility] Alkaline Phosphatase 75 39 - 117 U/L [facility] Blood Venous blood specimen / Unknown 12/03/2024 8:52 AM EDT 12/03/2024 11:10 AM EDT us Felicia Rico MD LAB BLOOD ORDERABLES Final Res ult [facility] [address] [place] [address] [phone] from Last 3 Months Insurance [facility] Care Teams Tier Lift Operator Relationship Specialty Start Date End Date Felicia Rico MD [address] [place] [address] PCP - General Family Medicine 11/30/24
--- OUTSIDE RECORDS SUMMARY | 2025-02-03 14:19 | XMS_ITS | Clinical Summary ---
Author Organization [employer] [facility] ity Address [address] [place] [address] Care Team Providers Care It Web Development Consultant Name Role Phone Unavailable Primary Care Provider [...] 09/05/2023 Zoster Vaccines (1 of 2) 09/05/2023 Depression Screening 04/21/2024 COVID-19 Vaccine (1 - 2023-2 5 season) 2024 Influenza Vaccine (#1) 2024 RSV Immunization Adult Patie nts (1 - 1-dose 75+ series) 2048 HIB [...]
--- OUTSIDE RECORDS SUMMARY | 2025-02-03 14:20 | XMS_ITS | Clinical Summary ---
Author Organization [facility] Address [address] [place] [address] Care Team Providers Care Plugging Machine Operator Name Role Phone Maria Ines Mcnair VARGAS Primary Care Provider [phone] Source Comments PLEASE NOTE, if this patient [...] nightly at bedtime 90 Tablet 1 07/13/19 Active carvediloL (COREG) 12.5 mg tabletIndications: Primary hypertension,HFrEF (heart failure with reduced ejection fraction) Take 1 Tablet by mouth 2 (two) times daily with a meal 180 Tablet 1 07/13/[address] aspirin [address] tabletIndications: Hyperlipidemia, unspecified hyperlipidemia type,HFrEF (heart failure with reduced ejection fraction) TOME 1 TABLETA POR VIA ORAL TODOS LOS ELIZONDO 90 Tablet 10/18/19 Active Active Problems Problem Noted Date Diagnosed Date HFrEF (heart failure with reduced ejection fract ion) 02/13/2024 Left bundle branch block 02/13/2024 Overview (02/13/2024): EKG 02/26/19: Normal sinus rhythm Possible Left atrial enlargement Left axis deviation & Left bundle branch block Class 1 obesity due to exces s calories with body mass index (BMI) of 30.0 to 30.9 in adult 02/13/2024 Tobacco dependence due to cigarettes 02/13/2024 Cardiomyopathy 02/13/2024 Primary hypertension 01/31/2024 Hyperlipidemia 01/31/2024 Family [...] 03/09/202003/09 Imm-Zoster, Recombinant (1 of 2) 09/05/2023 Alcohol and Drug Screen 04/21/2024 02/13/2024 Depression Annual Screen 04/21/2024 02/13/2024 Vna-CLOTB-12 (1 - season) 2024 Imm-Influenza (#1) 2024 03/09/2019 Annual Wellness (Adult): Indicated (All Coverage) 01/2002/13/2024 Tobacco Cessation Counseling (#1) 02/12/2025 024 Insurance [facility] Care Teams Plugging Machine Operator Relationship Specialty Start Date End Date Maria Ines Mcnair NP [address] [place] [address] PCP - General Family Medicine, [facility] 01/30/24
== END ==
LOC: HO.CARD 11:11
PROVIDERS: Visit Provider General Practice
DX: I42.9 Cardiomyopathy, unspecified (principal)
CPT/HCPCS: 93306

== ENCOUNTER → 2025-02-03 11:14 | Outpatient (BNV) | payer OTHER, SELFPAY | PROVIDERS: Visit Provider Internal Medicine Cardiovascular Disease | DX: I51.7 Cardiomegaly (principal); I34.0 Nonrheumatic mitral (valve) insufficiency; I77.810 Thoracic aortic ectasia | CPT/HCPCS: 93306; 93356 ==

== ENCOUNTER 2025-03-28 11:33 | Outpatient (AMB) | payer OTHER, SELFPAY ==
--- NOTE | 2025-03-28 11:33 | MHC.OFFVIS ---
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 He has background history of alcohol use and was drinking heavily when he got diagnosed with cardiomyopathy and from his description he had biventricular dysfunction. He is saying that his heart function was 30%. We do not have echocardiography available but he has recent echocardiogram in January which showed EF of 45-50% with mild dilation of the left ventricle. He has cut back significantly on his drinking. He was also hypotensive and has been taking medications. He smokes 3-4 cigarettes per day. He is saying he is only drinking on the weekends. No chest discomfort or shortness of breath. [facility] Family History (Updated 03/28/25 @ 11:37 by Chandni De Leon CMA) Mother No problems noted. Father Heart attack Social History (Updated 03/28/25 @ 11:38 by Chandni De Leon MANAGER CREDIT) Alcohol intake: current Patient Tobacco Use Status: Never used Tobacco Tobacco use type: Cigarette Cigarettes Per Day: 3 Review of Systems Const Denies chills, Denies fatigue, Denies fever(s), Denies frequent falls, Denies weakness, Denies weight gain and Denies weight loss ENT Denies dizziness Card Denies chest pain, Denies leg edema, Denies lightheadedness, Denies palpitations, Denies dyspnea, Denies dyspnea on exertion and Denies orthopnea Resp Denies cough, Denies dyspnea and Denies dyspnea on exertion GI Denies bloating and Denies change in bowel habits Musc Denies muscle weakness, Denies numbness and Denies tingling Neuro Denies dizziness, Denies frequent falls, Denies numbness, Denies tingling and Denies weakness Endo Denies fatigue and Denies palpitations Physical Exam Vital Signs: Last Vital Signs Pulse 67 03/28/25 11:35 BP 140/82 H 03/28/25 11:35 BMI result Body Mass Index 31.6 GENERAL APPEARANCE: in no acute distress, pleasant. NECK: no carotid bruit, no jugular venous distention. SKIN: no suspicious lesions, warm and dry. HEART: no murmurs, regular rate and rhythm. LUNGS: clear to auscultation bilaterally. ABDOMEN: soft, nontender. EXTREMITIES: no edema. PERIPHERAL PULSES: equal. NEUROLOGIC: No gross deficits, AAO X 3 Office Procedures EKG Details: Sinus rhythm 67 beats per minute, normal axis, left bundle-branch block, WV interval 154 milliseconds. QTC 490 milliseconds. [id number], Complete Results Reviewed Results Reviewed: Echocardiography January 2025 showing mildly dilated left ventricle with mildly reduced ejection fraction of 45-50%, mild mitral valve regurgitation, mild left atrial dilatation. Assessment & Plan Assessment & Plan (1) Cardiomyopathy: Code(s): I42.9 - Cardiomyopathy, unspecified Category: Medical (2) Hypertension: Code(s): I10 - Essential (primary) hypertension Category: Medical (3) LBBB (left bundle branch block): Code(s): I44.7 - Left bundle-branch block, unspecified Category: Medical Plan [age] year gentleman with hypertension, left bundle-branch block and cardiomyopathy. He is reporting EF of 30% previously. Recent echocardiography has shown EF 45-50%. He is saying he was drinking heavily when he was diagnosed with cardiomyopathy. He has cut back and overall his LV function appears to be better. Blood pressure is elevated. Adding losartan 25 mg daily. We will repeat limited echo in 3 months. I have advised him to cut back and stopped drinking completely. I think his cardiomyopathy is linked with alcohol use. Left bundle-branch block is present but he has high-voltage and I think this is a byproduct of hypertension. Thank you for allowing me to participate in the care of your patient. Please feel free to contact me if you have any questions. Medications: New losartan 25 mg PO DAILY 60 tabs 3RF I42.9 - Cardiomyopathy, unspecified Coding Level of Care Code New Pt Level 4 (47911) Diagnoses Cardiomyopathy I42.9 Hypertension I10 LBBB (left bundle branch block) I44.7 CPT Codes EKG - CPT: 83922-[id number], Complete ([id number])
[2025-03-28 11:35] VITALS: BP 140/82; PULSE 67; BMI 31.6
== END 2025-03-28 11:59 | disposition home or self-care (01) ==
LOC: HO.HCS 11:33
PROVIDERS: Visit Provider Internal Medicine Cardiovascular Disease
DX: I42.9 Cardiomyopathy, unspecified (principal); I10 Essential (primary) hypertension; I44.7 Left bundle-branch block, unspecified
CPT/HCPCS: 93010; 99204

== ENCOUNTER → 2025-03-28 11:33 | Outpatient (BNVA) | payer OTHER, SELFPAY | PROVIDERS: Visit Provider Internal Medicine Cardiovascular Disease | DX: I42.9 Cardiomyopathy, unspecified (principal); I10 Essential (primary) hypertension; I44.7 Left bundle-branch block, unspecified; Z79.899 Other long term (current) drug therapy; Z79.01 Long term (current) use of anticoagulants | CPT/HCPCS: 93005; 99202 ==